=== PATIENT | female | born 1935 | race Caucasian/White ===

== ENCOUNTER 2017-02-13 05:59 | Day surgery (SDC) | payer MEDICARE, BC ==
[~2017-02-13 05:59] MED LIST: 5FU; ALEVE220 M2 PO; AMIODARONE HCL200 M1 PO; ASPIRIN81 MG PO; AVASTIN; CALCIUM600 M1 PO; CALICUM 501 TAB.CHEW PO; CARDIZEM30 MG PO; CARTIA XT120 M1 PO; COLACE100 M1 PO; DILAUDID; FOLIC ACID1 M1 PO; HYDROCODON-ACE1 EA15 PO; LEUCOVORIN IJ; LONSURF; LOPERAMIDE2 M3 PO; LOVENOX40 MG/0.4 SQ; MULTIVITAMIN1 TAB PO; OMEPRAZOLE20 M3 PO; OXALIPLATI100 MG/20 IV; PERIDEX118 ML SSP; PROCTOFOAM-HC F10 G1 PR; REGLAN10 M2 PO; TYLENOL325 M2 PO; ZOFRAN8 M1 PO
[2017-02-13 06:58] LABS: BASO % 0.1 % (0-2); EOS % 1.1 % (0-7); EOSINOPHIL ABSOLUTE COUNT 0.1 tho/cmm (0.0-0.7); HCT-HEMATOCRIT 35.3 % (34.0-49.0); IMMATURE GRANULOCYTES ABSOLUTE 0.02 tho/cmm (0-0.03); IMMATURE GRANULOCYTES PERCENT 0.2 % (0-0.3); LYMPH % 6.6 % (20-45); LYMPH ABSOLUTE COUNT 0.6 tho/cmm (0.8-4.5); MCHC MEAN CORPUSCULAR HGB CONC 31.2 % (32.0-36.0); MCV (MEAN CELL VOLUME) 102.6 fl (82.0-96.0); MEAN PLATELET VOLUME 9.3 cmc (9.4-12.4); MONO % 7.2 % (0-12); MONOCYTE ABSOLUTE COUNT 0.6 tho/cmm (0.0-1.2); NEUTROPHIL ABSOLUTE COUNT 7.5 tho/cmm (1.6-8.0); NEUTROPHIL-AUTOMATED 7.5 tho/cmm (1.6-8.0); NEUTROPHILS % 84.8 % (40-80); PLATELET COUNT 241 tho/cmm (150-450); RED BLOOD COUNT 3.44 mil/cmm (4.00-5.20); RED CELL DISTRIBUTION WIDTH 17.7 % (12.4-16.4); WHITE BLOOD COUNT 8.8 tho/cmm (4.0-10.0)
[2017-02-13 07:21] LABS: PROTHROMBIN TIME 11.1 SECONDS (9.0-13.6)
[2017-08-15] MEDS ORDERED: LASIX40 M1 PO (16:28)
[2017-08-15] MEDS ORDERED: TYLENOL WITH C1 EACH PO (16:29)
[2017-08-17] MEDS ORDERED: ALDACTONE50 M1 PO (15:33)
[2017-08-17] MEDS ORDERED: DULCOLAX10 MG PR (15:35)
[2017-08-17] MEDS ORDERED: MILK OF MAGNESIA PO (15:37)
[2017-08-17] MEDS ORDERED: MIRALAX17 G2 PO (15:38)
[2017-08-17] MEDS ORDERED: ATIVAN1 M2 PO/SL (15:44)
[2017-08-17] MEDS ORDERED: MORPHINE S20 MG/1 M1 PO/SL (15:50)
== END 2017-02-13 09:45 ==
LOC: CTSCAN 05:59 → SHSB 06:05
PROVIDERS: Radiology Diagnostic Radiology
PROC: BH01ZZZ Plain Radiography of Left Breast (ICD-10-PCS; principal; 2017-02-13)
DX: C50.912 Malignant neoplasm of unspecified site of left female breast (principal); C79.51 Secondary malignant neoplasm of bone; C78.7 Secondary malignant neoplasm of liver and intrahepatic bile duct; I48.0 Paroxysmal atrial fibrillation; F41.9 Anxiety disorder, unspecified; F32.9 Major depressive disorder, single episode, unspecified; K21.9 Gastro-esophageal reflux disease without esophagitis; M19.90 Unspecified osteoarthritis, unspecified site; Z79.899 Other long term (current) drug therapy; Z90.710 Acquired absence of both cervix and uterus; Z98.41 Cataract extraction status, right eye; Z98.42 Cataract extraction status, left eye; Z85.048 Personal history of other malignant neoplasm of rectum, rectosigmoid junction, and anus; Z98.890 Other specified postprocedural states
CPT/HCPCS: A4648; J7030

== ENCOUNTER 2017-05-02 03:48 | Inpatient (IN) | payer MEDICARE, BC ==
[2017-05-02 04:18] LABS: BASO % 0.2 % (0-2); EOS % 0.3 % (0-7); HCT-HEMATOCRIT 31.2 % (34.0-49.0); HGB-HEMOGLOBIN 9.9 gm/dl (12.0-15.5); IMMATURE GRANULOCYTES ABSOLUTE 0.06 tho/cmm (0-0.03); IMMATURE GRANULOCYTES PERCENT 0.6 % (0-0.3); LYMPH % 7.7 % (20-45); LYMPH ABSOLUTE COUNT 0.8 tho/cmm (0.8-4.5); MCH (MEAN CORPUSCULAR HGB) 34.1 pg (28.0-32.0); MCHC MEAN CORPUSCULAR HGB CONC 31.7 % (32.0-36.0); MCV (MEAN CELL VOLUME) 107.6 fl (82.0-96.0); MEAN PLATELET VOLUME 9.4 cmc (9.4-12.4); MONO % 6.6 % (0-12); MONOCYTE ABSOLUTE COUNT 0.6 tho/cmm (0.0-1.2); NEUTROPHIL ABSOLUTE COUNT 8.2 tho/cmm (1.6-8.0); NEUTROPHIL-AUTOMATED 8.2 tho/cmm (1.6-8.0); NEUTROPHILS % 84.6 % (40-80); PLATELET COUNT 214 tho/cmm (150-450); WHITE BLOOD COUNT 9.7 tho/cmm (4.0-10.0)
[2017-05-02 04:37] LABS: ALB/GLOB RATIO 0.7 (0.8-2.0); ALBUMIN 2.9 g/dl (3.5-5.0); ALT/SGPT 47 U/L (12-78); ANION GAP 15 mmol/L (0-20); AST/SGOT 76 U/L (10-40); BILIRUBIN,TOTAL 0.5 mg/dl (0-1.5); BLOOD UREA NITROGEN 19 mg/dl (6-24); CALCIUM 8.6 mg/dl (8.5-10.5); CARBON DIOXIDE-VENOUS 23 mmol/L (22-32); CHLORIDE 107 mmol/l (96-110); CREATININE 0.68 mg/dl (0.50-1.10); GLUCOSE 114 mg/dL (70-110); POTASSIUM 4.5 mmol/L (3.7-5.1); SODIUM 140 mmol/L (135-145); eGFR VALUE FOR BLACK >90 mL/Min
[2017-05-02] MEDS ORDERED: HYDROCODON-ACE1 EA17 PO (04:49)
[2017-05-02] MEDS ORDERED: CALCIUM 600 +1 EA14 PO (04:50)
[2017-05-02] MEDS ORDERED: LONSURF 20 MG-1 EACH PO (04:53)
[2017-05-02 04:54] LABS: ALKALINE PHOSPHATASE 525 U/L (33-138)
[2017-05-02] MEDS ORDERED: BACTRIM DS TAB1 EAC2 PO (04:54)
[2017-05-02] MEDS ORDERED: POTASSIUM CHLO20 ME3 PO (04:54)
[2017-05-02] MEDS ORDERED: [UNRECOGNIZED DRUG - OTHER] (04:54)
[2017-05-02] MEDS ORDERED: MS CONTIN15 M1 PO (04:55)
[2017-05-02] MEDS ORDERED: ALDACTONE25 M1 PO (04:55)
[2017-05-02] MEDS ORDERED: ISOSORBIDE MONO30 M4 PO (04:57)
[2017-05-02 05:06] LABS: PROCALCITONIN 0.31 ng/ml (0.05-0.09)
[2017-05-02 05:16] LABS: URINE BILIRUBIN NEGATIVE (NEG); URINE BLOOD SMALL (NEG); URINE GLUCOSE (UA) NEGATIVE (NEG); URINE KETONE NEGATIVE (NEG); URINE LEUKOCYTE ESTERASE POSITIVE (NEG); URINE NITRITE NEGATIVE (NEG); URINE PH 6.5 (5.0-8.0); URINE PROTEIN MODERATE (NEG)
[2017-05-02 05:25] LABS: URINE APPEARANCE HAZY; URINE COLOR YELLOW
[2017-05-02 05:26] LABS: URINE WBC 15-20 /[HPF] (0-5)
[2017-05-02 05:27] LABS: URINE BACTERIA 3+; URINE EPITHELIAL CELLS RARE /[HPF] (0-10); URINE RBC 0-3 /[HPF] (0-5)
[2017-05-03 05:38] LABS: BASO % 0.1 % (0-2); HCT-HEMATOCRIT 24.3 % (34.0-49.0); HGB-HEMOGLOBIN 7.6 gm/dl (12.0-15.5); IMMATURE GRANULOCYTES ABSOLUTE 0.02 tho/cmm (0-0.03); IMMATURE GRANULOCYTES PERCENT 0.2 % (0-0.3); LYMPH % 6.1 % (20-45); LYMPH ABSOLUTE COUNT 0.6 tho/cmm (0.8-4.5); MCH (MEAN CORPUSCULAR HGB) 34.1 pg (28.0-32.0); MCHC MEAN CORPUSCULAR HGB CONC 31.3 % (32.0-36.0); MEAN PLATELET VOLUME 8.9 cmc (9.4-12.4); MONO % 6.5 % (0-12); MONOCYTE ABSOLUTE COUNT 0.6 tho/cmm (0.0-1.2); NEUTROPHIL ABSOLUTE COUNT 8.2 tho/cmm (1.6-8.0); NEUTROPHIL-AUTOMATED 8.2 tho/cmm (1.6-8.0); NEUTROPHILS % 87.1 % (40-80); PLATELET COUNT 170 tho/cmm (150-450); RED BLOOD COUNT 2.23 mil/cmm (4.00-5.20); RED CELL DISTRIBUTION WIDTH 22.5 % (12.4-16.4); WHITE BLOOD COUNT 9.4 tho/cmm (4.0-10.0)
[2017-05-03 05:51] LABS: ALB/GLOB RATIO 0.7 (0.8-2.0); ALBUMIN 2.3 g/dl (3.5-5.0); ALKALINE PHOSPHATASE 359 U/L (33-138); ALT/SGPT 33 U/L (12-78); ANION GAP 12 mmol/L (0-20); AST/SGOT 39 U/L (10-40); BILIRUBIN,TOTAL 0.5 mg/dl (0-1.5); BLOOD UREA NITROGEN 13 mg/dl (6-24); CALCIUM 7.6 mg/dl (8.5-10.5); CARBON DIOXIDE-VENOUS 22 mmol/L (22-32); CHLORIDE 111 mmol/l (96-110); CREATININE 0.56 mg/dl (0.50-1.10); GLUCOSE 100 mg/dL (70-110); MAGNESIUM 2.1 mg/dl (1.8-2.6); POTASSIUM 4.3 mmol/L (3.7-5.1); SODIUM 141 mmol/L (135-145); eGFR VALUE FOR BLACK >90 mL/Min
[2017-05-04 05:15] LABS: BASO % 0.3 % (0-2); EOS % 0.3 % (0-7); HCT-HEMATOCRIT 24.9 % (34.0-49.0); HGB-HEMOGLOBIN 8.2 gm/dl (12.0-15.5); IMMATURE GRANULOCYTES ABSOLUTE 0.03 tho/cmm (0-0.03); IMMATURE GRANULOCYTES PERCENT 0.4 % (0-0.3); LYMPH % 9.3 % (20-45); LYMPH ABSOLUTE COUNT 0.7 tho/cmm (0.8-4.5); MCHC MEAN CORPUSCULAR HGB CONC 32.9 % (32.0-36.0); MCV (MEAN CELL VOLUME) 109.2 fl (82.0-96.0); MEAN PLATELET VOLUME 9.4 cmc (9.4-12.4); MONOCYTE ABSOLUTE COUNT 0.6 tho/cmm (0.0-1.2); NEUTROPHIL ABSOLUTE COUNT 5.7 tho/cmm (1.6-8.0); NEUTROPHIL-AUTOMATED 5.7 tho/cmm (1.6-8.0); NEUTROPHILS % 81.7 % (40-80); PLATELET COUNT 167 tho/cmm (150-450); RED BLOOD COUNT 2.28 mil/cmm (4.00-5.20); RED CELL DISTRIBUTION WIDTH 21.5 % (12.4-16.4)
[2017-05-04 05:30] LABS: ALBUMIN 2.3 g/dl (3.5-5.0); ANION GAP 11 mmol/L (0-20); BLOOD UREA NITROGEN 11 mg/dl (6-24); C-REACTIVE PROTEIN 1.4 mg/dl (0-0.9); CALCIUM 7.6 mg/dl (8.5-10.5); CARBON DIOXIDE-VENOUS 23 mmol/L (22-32); CHLORIDE 111 mmol/l (96-110); CREATININE 0.57 mg/dl (0.50-1.10); GLUCOSE 81 mg/dL (70-110); PHOSPHOROUS 1.7 mg/dl (2.5-4.9); POTASSIUM 4.4 mmol/L (3.7-5.1); SODIUM 141 mmol/L (135-145); eGFR VALUE FOR BLACK >90 mL/Min
[2017-05-04 07:07] LABS: PROCALCITONIN 0.97 ng/ml (0.05-0.09)
[2017-05-05 07:37] LABS: C-REACTIVE PROTEIN 1.7 mg/dl (0-0.9); PHOSPHOROUS 3.9 mg/dl (2.5-4.9)
[2017-05-05 07:40] LABS: BASO % 0.2 % (0-2); EOS % 0.5 % (0-7); HCT-HEMATOCRIT 29.7 % (34.0-49.0); HGB-HEMOGLOBIN 9.4 gm/dl (12.0-15.5); IMMATURE GRANULOCYTES ABSOLUTE 0.05 tho/cmm (0-0.03); IMMATURE GRANULOCYTES PERCENT 0.8 % (0-0.3); LYMPH % 8.6 % (20-45); LYMPH ABSOLUTE COUNT 0.6 tho/cmm (0.8-4.5); MCHC MEAN CORPUSCULAR HGB CONC 31.6 % (32.0-36.0); MEAN PLATELET VOLUME 9.7 cmc (9.4-12.4); MONO % 9.8 % (0-12); MONOCYTE ABSOLUTE COUNT 0.6 tho/cmm (0.0-1.2); NEUTROPHIL ABSOLUTE COUNT 5.2 tho/cmm (1.6-8.0); NEUTROPHIL-AUTOMATED 5.2 tho/cmm (1.6-8.0); NEUTROPHILS % 80.1 % (40-80); PLATELET COUNT 184 tho/cmm (150-450); RED BLOOD COUNT 2.75 mil/cmm (4.00-5.20); WHITE BLOOD COUNT 6.5 tho/cmm (4.0-10.0)
[2017-05-05 07:48] LABS: MCH (MEAN CORPUSCULAR HGB) 34.2 pg (28.0-32.0)
[2017-05-05 08:15] LABS: PROCALCITONIN 0.55 ng/ml (0.05-0.09)
[2017-05-05] MEDS ORDERED: STOP THE FOLLOWING (10:13)
[2017-05-05] MEDS ORDERED: CEFTIN PO (13:13)
[2017-08-15] MEDS ORDERED: LASIX40 M1 PO (16:28)
[2017-08-15] MEDS ORDERED: TYLENOL WITH C1 EACH PO (16:29)
[2017-08-17] MEDS ORDERED: ALDACTONE50 M1 PO (15:33)
[2017-08-17] MEDS ORDERED: DULCOLAX10 MG PR (15:35)
[2017-08-17] MEDS ORDERED: MILK OF MAGNESIA PO (15:37)
[2017-08-17] MEDS ORDERED: MIRALAX17 G2 PO (15:38)
[2017-08-17] MEDS ORDERED: ATIVAN1 M2 PO/SL (15:44)
[2017-08-17] MEDS ORDERED: MORPHINE S20 MG/1 M1 PO/SL (15:50)
== END 2017-05-05 13:53 | DRG 872 ==
LOC: EDMED 03:48 → EMR2 06:41 → 5WE 07:50
PROVIDERS: Emergency Medicine; Family Medicine; Internal Medicine; Internal Medicine Infectious Disease; ADMIT Hospitalist
DX: A41.9 Sepsis, unspecified organism (principal); C78.00 Secondary malignant neoplasm of unspecified lung; C78.7 Secondary malignant neoplasm of liver and intrahepatic bile duct; I48.0 Paroxysmal atrial fibrillation; N39.0 Urinary tract infection, site not specified; D53.9 Nutritional anemia, unspecified; C50.912 Malignant neoplasm of unspecified site of left female breast; E83.39 Other disorders of phosphorus metabolism; S70.01XA Contusion of right hip, initial encounter; E78.5 Hyperlipidemia, unspecified; Z85.038 Personal history of other malignant neoplasm of large intestine; Z92.3 Personal history of irradiation; Z79.899 Other long term (current) drug therapy; X58.XXXA Exposure to other specified factors, initial encounter
CPT/HCPCS: G8978-GP-CI; G8979-GP-CI; J0456; J0696; J1650; J2405; J7030; J7050